=== PATIENT | male | born 1945 | race Two or more races ===

== ENCOUNTER 2017-05-23 13:31 | Inpatient (IN) | payer MEDICAID ==
[~2017-05-23] VITALS: Ht 172.7 cm; Wt 87.1 kg
--- NOTE | 2017-05-23 13:35 | NUR ---
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 PLACED ON MONITOR. AWAITING MD FOR EVAL.
[2017-05-23] MEDS ORDERED: NITROGLYCERIN PACKET 1 GM PACKET ONE (13:47)
[2017-05-23 13:55] LABS: BASOPHILS % (AUTO) 0.4 % (0.0-2.0); EOSINOPHILS # (AUTO) 0.1 /CMM (0.0-0.7); EOSINOPHILS % (AUTO) 2.6 % (0.0-6.0); HEMATOCRIT 43 % (39-51); HEMOGLOBIN 14.9 g/dL (13.5-17.5); LYMPHOCYTES # (AUTO) 1.6 /CMM (0.8-4.8); LYMPHOCYTES % (AUTO) 31.2 % (20.0-44.0); MEAN CORPUSCULAR HEMOGLOBIN 31 PG (26.0-33.0); MEAN CORPUSCULAR HGB CONC 34 g/dl (31.0-36.0); MEAN CORPUSCULAR VOLUME 91 fL (80-96); MONOCYTES # (AUTO) 0.4 /CMM (0.1-1.30); MONOCYTES % (AUTO) 7.5 % (2.0-12.0); NEUTROPHILS % (AUTO) 58.3 % (43.0-81.0); PLATELET COUNT (AUTO) 182 /CMM (150-450); RDW COEFFICIENT OF VARIATION 13.6 (11.5-15.0); RED BLOOD CELL COUNT(AUTO) 4.74 MIL/uL (4.5-6.0); WHITE BLOOD COUNT (AUTO) 5.2 K/uL (4.3-11.0)
[2017-05-23] MEDS ORDERED: NITROGLYCERIN PACKET 1 GM PACKET TD ONE (14:00)
[2017-05-23 14:19] LABS: CALCIUM, SERUM 8.9 mg/dL (8.5-10.1); CARBON DIOXIDE 23 mmol/L (21-32); CHLORIDE 103 mmol/L (98-107); CREATININE 1.1 mg/dL (0.6-1.3); GLUCOSE 137 mg/dL (74-106); INR 0.93 (0.87-1.13); SODIUM SERUM 138 mmol/L (136-145); UREA NITROGEN, BLOOD 15 mg/dL (7-18)
[2017-05-23 14:21] LABS: TROPONIN I < 0.017 ng/mL (0.00-0.056)
[2017-05-23 14:25] LABS: ALANINE AMINOTRANSFERASE 34 U/L (12-78); ALBUMIN 3.4 g/dL (3.4-5.0); ALKALINE PHOSPHATASE 75 U/L (46-116); ASPARTATE AMINOTRANSFERASE 26 U/L (15-37); BILIRUBIN,DIRECT 0.1 mg/dL (0.0-0.2); BILIRUBIN,TOTAL 0.8 mg/dL (0.2-1.0); TOTAL PROTEIN, SERUM 7.1 g/dL (6.4-8.2)
--- NOTE | 2017-05-23 15:04 | NUR ---
DR CADE ON THE PHONE WITH DR SHAIKH
[2017-05-23] MEDS ORDERED: BENA10TA2 PO (15:23)
[2017-05-23] MEDS ORDERED: CYCL10TA9 PO (15:23)
[2017-05-23] MEDS ORDERED: ONDA4TAB11 PO (15:23)
[2017-05-23] MEDS ORDERED: SIMV20TA6 PO (15:23)
[2017-05-23] MEDS ORDERED: CIPR500T5 PO (15:23)
[2017-05-23] MEDS ORDERED: HYDR-552 PO (15:23)
[2017-05-23] MEDS ORDERED: PANT40TA2 PO (15:23)
[2017-05-23] MEDS ORDERED: CYCL5TAB PO (15:31)
[2017-05-23] MEDS ORDERED: [UNRECOGNIZED DRUG - OTHER] PO (15:34)
--- NOTE | 2017-05-23 16:03 | NUR ---
PATIENT ASSIGNED TO TELE 327-1, DX CHEST PAIN. ADMITTING PHYSICIAN Bassem DESAI
--- NOTE | 2017-05-23 16:15 | NUR ---
REPORT GIVEN TO GRIS SEBASTIAN FOR SHERI TELE 321-2
--- NOTE | 2017-05-23 16:15 | NUR ---
RECEIVED REPORT FROM ARNAV IN ER
--- NOTE | 2017-05-23 16:25 | NUR ---
PATIENT ARRIVED TO THE UNIT TO ROOM 327-1.PATIENT IS A/O X4, NIGERIEN SPEAKING. SAFELY ASSISTED TO THE BED, BED IS LOCKED IN LOWEST POSITION, SIDE RAILS UP X3, BED ALARM IS ON. CALL LIGHT WITHIN REACH. EDUCATED TO CALL FOR ASSISTANCE USING THE CALL LIGHT. VERBALIZED UNDERSTANDING. WILL CONTINUE TO ASSESS/MONITOR THROUGHOUT THE SHIFT.
[2017-05-23 16:30] VITALS: BP 117/66
--- NOTE | 2017-05-23 16:45 | NUR ---
DR. SHAIKH INFORMED OF PATIENT'S ARRIVAL TO THE UNIT.
[2017-05-23] MEDS ORDERED: ACETAMINOPHEN 325 MG TABLET PO PRN (18:30)
[2017-05-23] MEDS ORDERED: HYDROCODONE/APAP 5/325MG 1 EACH TABLET PO PRN (19:00)
--- NOTE | 2017-05-23 19:45 | NUR ---
RN OPENING NOTES RECEIVED REPORT FROM [facility] GRIS SEBASTIAN. FOUND Pt AWAKE, RESTING IN BED. NO S/S OF ACUTE DISTRESS OR SOB NOTED. Pt IS A/OX4, FRENCH SPEAKING. ON TELE MONITOR. IV ACCESS ON LHAND #20G. SAFETY MEASURES IN PLACE. BED LOW, LOCKED, HOB ELEVATED, SIDE RAILS UP, CALL LIGHT AND BEDSIDE TABLE WITHIN REACH. WILL CONTINUE TO MONITOR Pt THROUGHOUT THE NIGHT FOR SAFETY.
[2017-05-23 20:00] VITALS: BP 109/65
--- NOTE | 2017-05-23 20:24 | NUR ---
COMPLIANCE AIDE CLOSING NOTE PATIENT IS A/O X4, WELSH SPEAKING. ASLEEP, EASILY AWAKEN IN BED. BED IS LOCKED IN LOWEST POSITION, SIDE RAILS UP X2, BED ALARM IS ON. CALL LIGHT WITHIN REACH. EDUCATED TO CALL FOR ASSISTANCE USING THE CALL LIGHT. VERBALIZED UNDERSTANDING. SKIN IS INTACT. DENIES PAIN/DISCOMFORT AT THIS TIME. CHESST IS RISING EQUALLY BILATERALLY. SPO2 99% ON RA.EXTERNAL MONITOR READING SB 57 REPORT GIVEN TO SENIOR RESERVATIONS AGENT NURSE FOR SHERI.
[2017-05-23] MEDS ORDERED: CYCLOBENZAPRINE 10 MG TABLET PO SCH (22:00)
[2017-05-24] MEDS ORDERED: IV PREMIX 0.45% NS + KCL 1,000 ML IV SCH
--- NOTE | 2017-05-24 06:55 | NUR ---
RN CLOSING NOTES NO SIGNIFICANT CHANGES IN Pt's CONDITION. Pt REMAINS IN STABLE CONDITION. NO S/S OF ACUTE DISTRESS OR SOB NOTED DURING THE NIGHT. TELE READING SR-SB 58 (WHEN SLEEPING). ALL NEEDS MET AND ATTENDED TO. SAFETY MEASURES IN PLACE. WILL ENDORSE TO DAYSHIFT RN FOR Pt's SHERI.
--- NOTE | 2017-05-24 07:50 | NUR ---
telephone operator receptionist opening note patient is alert and oriented X4. no pain at this time. no sob or distress noted. call light within reach. safety measures implemented. able to communicate needs. iv on left hand intact and patent no redness or swelling noted with iv fluids running at this time. npo currently at this time for nm stress test, consent obtained and placed in chart. will continue to monitor throughout shift
[2017-05-24 07:56] LABS: BASOPHILS % (AUTO) 0.6 % (0.0-2.0); EOSINOPHILS # (AUTO) 0.2 /CMM (0.0-0.7); EOSINOPHILS % (AUTO) 3.1 % (0.0-6.0); HEMATOCRIT 44 % (39-51); HEMOGLOBIN 14.9 g/dL (13.5-17.5); LYMPHOCYTES % (AUTO) 40.2 % (20.0-44.0); MEAN CORPUSCULAR HEMOGLOBIN 31 PG (26.0-33.0); MEAN CORPUSCULAR HGB CONC 34 g/dl (31.0-36.0); MEAN CORPUSCULAR VOLUME 91 fL (80-96); MONOCYTES # (AUTO) 0.4 /CMM (0.1-1.30); MONOCYTES % (AUTO) 7.2 % (2.0-12.0); NEUTROPHILS # (AUTO) 2.4 /CMM (1.8-8.9); NEUTROPHILS % (AUTO) 48.9 % (43.0-81.0); PLATELET COUNT (AUTO) 164 /CMM (150-450); RDW COEFFICIENT OF VARIATION 12.9 (11.5-15.0); RED BLOOD CELL COUNT(AUTO) 4.77 MIL/uL (4.5-6.0)
[2017-05-24 08:00] VITALS: BP 107/72
[2017-05-24] MEDS ORDERED: REGADENOSON 0.4 MG/5 ML DISP.SYRIN IVP ONE (08:30)
[2017-05-24 08:36] LABS: CALCIUM, SERUM 8.7 mg/dL (8.5-10.1); CARBON DIOXIDE 28 mmol/L (21-32); CHLORIDE 106 mmol/L (98-107); CREATININE 1.2 mg/dL (0.6-1.3); GLUCOSE 95 mg/dL (74-106); POTASSIUM 4.1 mmol/L (3.5-5.1); SODIUM SERUM 143 mmol/L (136-145); UREA NITROGEN, BLOOD 14 mg/dL (7-18)
[2017-05-24 08:43] LABS: TROPONIN I < 0.017 ng/mL (0.00-0.056)
[2017-05-24 08:44] LABS: CHOLESTEROL 214 mg/dL (<200); HDL CHOLESTEROL 34 mg/dL (40-60); LDL 110 mg/dL (0-99); TRIGLYCERIDES 379 mg/dL (30-150)
[2017-05-24] MEDS ORDERED: CIPROFLOXACIN HCL 500 MG TABLET PO SCH (09:00)
[2017-05-24] MEDS ORDERED: ONDANSETRON 4 MG TAB.RAPDIS PO SCH (09:00)
[2017-05-24] MEDS ORDERED: PANTOPRAZOLE 40 MG TABLET.DR PO SCH (09:00)
[2017-05-24] MEDS ORDERED: BENAZEPRIL HCL 10 MG TABLET PO SCH (09:00)
[2017-05-24] MEDS ORDERED: SIMVASTATIN 20 MG TABLET PO SCH (09:00)
[2017-05-24 12:15] LABS: MAGNESIUM 2.2 mg/dL (1.8-2.4)
--- NOTE | 2017-05-24 15:30 | NUR ---
SECOND CUTTER NOTE PATIENT IS ALERT AND ORIENTED X4. NO PAIN AT THIS TIME. NO SOB OR DISTRESS NOTED. CALL LIGHT WITHIN REACH AT ALL TIMES. SAFETY MEASURES IMPLEMENTED. ALL MEDICATIONS HELD DUE TO NPO. ALL NURSING CARE NEEDS ATTENDED TO NEEDED. PATIENT'S HAD STRESS TEST, RESULTS ARE NEGATIVE DR. GODDARD AND DR. SHAIKH AWARE. ALL DISCHARGE INSTRUCTIONS GIVEN TO PATIENT AT BEDSIDE, ABLE TO REPEAT INSTRUCTIONS BACK. ALL BELONGINGS ACCOUNTED FOR UPON DISCHARGE AND TAKEN WITH PATIENT AND SON. CONTINUE ALL HOME MEDICATIONS AND FOLLOW UP WITH MD POST DISCHARGE. LEFT VIA PRIVATE CAR WITH SON TO HOME.
== END 2017-05-24 15:30 | disposition home or self-care (01) | DRG 198 ==
LOC: ER 13:33 → TELE 18:11 → MED 05-24 09:42
PROVIDERS: ADMIT Internal Medicine; ATTEND Internal Medicine
DX: R07.89 Other chest pain (principal); I25.10 Atherosclerotic heart disease of native coronary artery without angina pectoris; I10 Essential (primary) hypertension; E78.5 Hyperlipidemia, unspecified
CPT/HCPCS: 36415; 71045-TC; 80048-TC; 80061-TC; 80076-TC; 83735-TC; 84484-TC; 85025-TC; 85730-TC; 87081-TC; 93307-TC; A4606; A9502; J2785; Z7610